=== PATIENT | female | born 1980 | race Caucasian/White ===

== ENCOUNTER 2022-09-30 10:31 | Outpatient (CLI) | payer OTHER, SELFPAY ==
--- NOTE | ~2022-09-30 | XR_ITS ---
XR foot RT min 3V DATE: 09/30/2022 10:54 INDICATION: Chronic right heel pain TECHNIQUE: 4 views COMPARISON: None FINDINGS: Slight posterior calcaneal enthesopathy. No fracture, dislocation, periosteal reaction or bone destruction. Joint spaces are relatively well p reserved. No erosive change. IMPRESSION: Slight posterior calcaneal enthesopathy Reviewed, dictated and finalized at location B. [employer]
== END 2022-09-30 10:32 | disposition home or self-care (01) ==
PROVIDERS: PCP Family Medicine; Visit Provider Family Medicine
DX: M79.671 Pain in right foot (principal); G89.29 Other chronic pain
CPT/HCPCS: 73630

== ENCOUNTER 2023-12-27 06:44 | Day surgery (SDC) | payer OTHER, SELFPAY ==
[2023-11-08 12:23] VITALS: BMI 25.7
[2023-12-10 08:33] VITALS: BMI 24.8
--- NOTE | 2023-12-21 09:45 | PM.HPGS ---
History of Present Illness History of Present Illness Consent: Risks, benefits, and alternatives have been discussed and questions answered. Patient agrees to proceed with procedure. Chief complaint: Screening neoplasm of colon Narrative: Rosa Levi is a 43 year old female who is referred for colon cancer screening. She has a family history of colon cancer. Her father developed colon cancer in his early 50s. Review of Systems Review of Systems: All systems reviewed & are unremarkable except as noted in HPI and below PMFSH Surgical History Surgical History History of section Social History Social History Smoking packs per day: 2 Smoking cigarettes per day: 40.0 Smoking status: Current every day smoker Tobacco type: cigarettes Substance use: current Substance use type: marijuana Last use: Nightly Living arrangements: with family Spiritual care concerns: No Meds Home Medications and Allergies Home Medications Medication Instructions Recorded Confirmed Type vitamin B complex 1 cap PO DAILY 12/10/23 12/27/23 History Allergies Allergy/AdvReac Type Severity Reaction Status Date / Time No Known Allergies Allergy Mild Verified 12/27/23 07:49 Exam Resp: Auscultation: clear to auscultation bilaterally Cardio: Rate: regular rate Rhythm: regular rhythm GI: GI Palp: Yes Soft to palpation and No Tenderness to palpation present (GI) Assessment and Plan Assessment and plan (1) Colon cancer screening: Code(s): Z12.11 - Encounter for screening for malignant neoplasm of colon Status: Acute Assessment and Plan: Colonoscopy with possible biopsy or polypectomy or cautery or injection of substances.
[2023-12-27] VITALS (7 sets, daily range): BP systolic 79–111; BP diastolic 43–68; PULSE 51–65; RESP 14–16; TEMP 36.7; O2SAT 99–100
[2023-12-27] MEDS: LACTATED RINGERS 1,000 ML 150 ML IV CONT (07:54)
--- NOTE | 2023-12-27 08:03 | P.PNAN_ITS ---
Anes - Initial Pre Proc Eval Procedure: Operation Date: 12/27/23 09:00 Proposed Procedures p Screening Colonoscopy - Nash Rubalcava MD Date/Time: 12/27/23 08:03 Surgeon: Nash Rubalcava MD Pre Op Diagnosis: Screening neoplasm of colon Patient Data Age: 43 Gender: F Height: 1.7 m Weight: 71.9 kg Last Vital Signs Temp 36.7 C 12/27/23 07:50 Pulse 59 L 12/27/23 07:50 Resp 16 12/27/23 07:50 BP 111/63 12/27/23 07:50 Pulse Ox 99 12/27/23 07:50 O2 Del Method Room Air 12/27/23 07:50 Allergies Allergy/AdvReac Type Severity Reaction Status Date / Time No Known Allergies Allergy Mild Verified 12/27/23 07:49 Home Medications Medication Instructions Recorded Confirmed Type vitamin B complex 1 cap PO DAILY 12/10/23 12/27/23 History Patient hx anesthesia problems: none Family hx anesthesia problems: none Results Review: All pre-operative results and documents have been reviewed as part of the pre-operative evaluation. COUNT INCLUDES THE [facility] Surgical History Surgical History (Updated 12/27/23 @ 08:03 by Royal Mckeon MD) History of section Social History Social History Smoking packs per day: 2 Smoking cigarettes per day: 40.0 Smoking status: Current every day smoker Tobacco type: cigarettes Substance use: current Substance use type: marijuana Last use: Nightly Living arrangements: with family Spiritual care concerns: No Anes - Eval Final PreProcedure Day of Procedure 12/27/23 08:03 Patient weight: normal Heart: regular rate and rhythm Lungs: clear to auscultation Airway: Mallampati scale class II Neurological: alert and oriented Last oral intake: >/= 8 hours ASA classification: II Emergent: no Anesthetic plan: proceed Anesthesia type and monitoring: general GIVS and standard monitoring Results Review: All pre-operative results and documents have been reviewed as part of the pre- operative evaluation. Informed Consent: The patient's anesthetic plan and its attendant risks and benefits were discussed with the patient/family/POA. Questions were solicited and answers provided to the satisfaction of the patient/family/POA.
--- NOTE | 2023-12-27 09:50 | WPDANESPN ---
Anes - Prog Note Post-Op Date/Time: 12/27/23 09:50 Cardiovascular status: normal Respiratory status: normal Airway patency: baseline Mental status: baseline Post-Op hydration status: normal Vital Signs: Last Vital Signs Temp 36.7 C 12/27/23 07:50 Pulse 52 L 12/27/23 09:48 Resp 14 12/27/23 09:48 BP 97/63 L 12/27/23 09:48 Pulse Ox 100 12/27/23 09:48 O2 Del Method Room Air 12/27/23 09:48 Pain Score (VAS): 0/10 I/O: Intake & Output 12/26/23 12/27/23 12/27/23 23:59 07:59 15:59 Intake Total 250 Balance 250 Patient Feedback: Patient satisfied with anesthetic care.
== END 2023-12-27 10:13 | disposition home or self-care (01) ==
PROVIDERS: PCP Family Medicine; Visit Provider Internal Medicine Gastroenterology
PROC: 0DJD8ZZ Inspection of Lower Intestinal Tract, Via Natural or Artificial Opening Endoscopic (ICD-10-PCS; CPT 45378; principal; 2023-12-27 09:00)
DX: Z12.11 Encounter for screening for malignant neoplasm of colon (principal); K57.30 Diverticulosis of large intestine without perforation or abscess without bleeding; Z80.0 Family history of malignant neoplasm of digestive organs
CPT/HCPCS: 45378

== ENCOUNTER 2024-03-15 11:27 | Outpatient (CLI) | payer OTHER, SELFPAY ==
--- NOTE | ~2024-03-15 | MMUS_ITS ---
EXAMINATION: MM screening vane BI w darcie, US breast LT limited HISTORY: Screening TECHNIQUE: Craniocaudal and mediolateral oblique 3-D tomosynthesis images were obtained and synthetic 2-D images were generated. CAD analysis was submitted and interpreted. High-resolution Limited ultra sound of the left breast. COMPARISON: Comparison to multiple prior studies sequentially, with oldest reviewed study dated 10/08. BREAST PARENCHYMAL COMPOSITION: Dense: The breasts are heterogeneously dense, which may obscure small masses FINDINGS: There is no evidence of suspicious mass, calcification, or architectural distortion to sugg est malignancy in either breast. There has been no suspicious interval change. Limited left breast ultrasound: At 3:00, 6 cm from the nipple there is an oval partially cystic hypoe choic circumscribed 6 mm mass with parallel orientation, no posterior features and no internal vascul arity. This compares with measurement of 1.5 cm on prior examination. IMPRESSION: 1. Decreased size of oval hypoechoic mass of the left breast at 3:00, 6 cm from the nipple, likely be nign cluster of microcysts. 2. Recommend follow-up Limited left breast ultrasound in 6 months. BI-RADS CATEGORY 3-PROBABLY BENIGN FINDING RECOMMENDATION: 6 month follow up recommended. Reviewed, dictated and finalized at location B. IMPRESSION: 1. Decreased size of oval hypoechoic mass of the left breast at 3:00, 6 cm from the nipple, likely benign cluster of microcysts. 2. Recommend follow-up Limited left breast ultrasound in 6 months. BI-RADS CATEGORY 3-PROBABLY BENIGN FINDING RECOMMENDATION: 6 month follow up recommended.
== END 2024-03-15 11:28 ==
PROVIDERS: PCP Family Medicine; Visit Provider Family Medicine
DX: Z12.31 Encounter for screening mammogram for malignant neoplasm of breast (principal); R92.8 Other abnormal and inconclusive findings on diagnostic imaging of breast
CPT/HCPCS: 76642; 77063; 77067

== ENCOUNTER 2024-04-24 12:21 | Outpatient (CLI) | payer OTHER, SELFPAY ==
[2024-04-24 13:30] LABS: Thyroid Stimulating Hormone Reflex 0.911 uIU/mL (0.465-4.68)
[2024-04-28 04:04] LABS: Immunoglobulin A 193 mg/dL (47-310); TTG IGA AB <1.0 U/mL
== END 2024-04-24 12:22 | disposition home or self-care (01) ==
LOC: ANHLAB 12:22
PROVIDERS: PCP Family Medicine; Visit Provider Nurse Practitioner
DX: K59.09 Other constipation (principal); K57.90 Diverticulosis of intestine, part unspecified, without perforation or abscess without bleeding; Z80.0 Family history of malignant neoplasm of digestive organs
CPT/HCPCS: 36415; 82784; 84443; 86364